=== PATIENT | male | born 1940 | race Caucasian/White ===

== ENCOUNTER 2022-07-29 08:49 | Day surgery (SDC) | payer MEDICARE, BC ==
[~2022-07-29 08:49] MED LIST: ALPRAZolam 0.25 MG TAB PO PRN; ALPRAZolam 0.5 MG TAB PO PRN; ASPIRIN 325 MG TAB PO STA; ATORVASTATIN 80 MG TAB PO STA; HEPARIN SODIUM,PORCINE 10,000 UNIT in SODIUM CHLORIDE 0.9% 1,000 ML IRRIGATION PRN; HEPARIN SODIUM,PORCINE 2,500 UNIT in SODIUM CHLORIDE 0.9% 250 ML IRRIGATION PRN; NITROGLYCERIN SL TABS 0.4 MG TAB SUBLINGUAL PRN
[2022-07-29] MEDS ORDERED: SODIUM CHLORIDE 0.9% 1,000 ML IV ONE (09:06)
[2022-07-29] MEDS ORDERED: BENZOCAINE SPRAY 1 CAN MUCOUS MEM ONE (10:08)
[2022-07-29] MEDS ORDERED: fentaNYL (PF) 50 MCG/1 ML VIAL IV ONE (10:08)
[2022-07-29] MEDS ORDERED: MIDAZOLAM 2 MG/2 ML VIAL IV ONE ×2 (10:08→11:39)
[2022-07-29] MEDS ORDERED: IV FLUID CONTINUATION 1,000 ML IV ONE (10:30)
[2022-07-29] MEDS ORDERED: LIDOCAINE 1% INJ 10MG/ML (30 ML VIAL-PF) SQ ONE (10:37)
[2022-07-29] MEDS ORDERED: VERAPAMIL SYRINGE (5 MG/10 ML) INTRAARTER ONE (10:40)
[2022-07-29] MEDS: HEPARIN SODIUM 1,000 UN/ML (10ML VL) IV ONE ×2 (10:43→11:14)
--- NOTE | 2022-07-29 10:54 | PCN ---
PROCEDURE NOTE STUDY PERFORMED: Transesophageal echo. INDICATION: Aortic stenosis. PROCEDURE NOTE: After obtaining informed consent, transesophageal echocardiogram was performed in left lateral position using an Omniplane probe. Local and IV sedation were obtained using Xylocaine spray, 2 mg of Versed, and 25 mcg of fentanyl. The patient tolerated the procedure well without any obvious immediate complications. The patient had a total sedation time of 10 minutes. FINDINGS: 1. Aortic valve is a 3-leaflet valve, appears heavily calcified and shows severe restriction in leaflet mobility. By planimetry, the valve area is 0.6 squared cm. There is trace aortic regurgitation noted. Mitral valve shows mitral annular calcification with mild central mitral regurgitation. There is mild tricuspid regurgitation. 2. Interatrial septum, there is no evidence of [id number]-bs-[id number] shunt by color-flow Doppler or meams-jq-xfhl shunt by agitated saline contrast study. 3. Left atrium appears mildly enlarged. Right atrium and right ventricle seen within normal limits. 4. Left ventricle has normal size and systolic function. 5. Ascending aorta is free of aneurysm, dilatation, or dissection. CONCLUSION: Severe aortic stenosis involving a 3-leaflet aortic valve and by planimetry, the valve area is 0.6 squared cm. LV function is normal. PLAN: The patient will undergo cardiac catheterization and will be referred for the TAVR. MMODL / IJN: [id number] /
[2022-07-29] MEDS ORDERED: CLOPIDOGREL 75 MG TAB PO ONE (11:14)
[2022-07-29] MEDS ORDERED: IOPAMIDOL-370 100ML BTL INJ ONE ×2 (11:27→12:02)
[2022-07-29] MEDS ORDERED: ATROPINE SULFATE 0.1 MG/ML 10ML SYRINGE IV PRN (11:56)
[2022-07-29] MEDS ORDERED: ZOLPIDEM 5 MG TAB PO PRN (11:56)
[2022-07-29] MEDS ORDERED: NITROGLYCERIN SL TABS 0.4 MG TAB SUBLINGUAL PRN (11:56)
[2022-07-29] MEDS ORDERED: MAG HYDROX/AL HYDROX/SIMETH 30 ML CUP PO PRN (11:56)
[2022-07-29] MEDS ORDERED: RX INFO: IV CONTRAST WAS GIVEN 1 EACH MISC MISCELLANE PRN (11:56)
[2022-07-29] MEDS ORDERED: SODIUM CHLORIDE 0.9% 1,000 ML in EMPTY BAG 1 BAG IV SCH (12:00)
--- NOTE | 2022-07-29 12:01 | P.CARDCATH ---
Date of Procedure: 07/29/22 Description of Procedure: PERCUTANEOUS TRANSLUMINAL CORONARY ANGIOPLASTY CLINICAL INFORMATION: The patient is an 81-year-old male with a history of hypertension, severe aortic stenosis, followed by Dr. Gates and because of the progression of aortic stenosis he underwent cardiac catheterization in preparati on for TAVR and was found to have critical stenosis involving the proximal LAD. Recommendations were made regarding angioplasty and stenting. The procedure as well as the risks and the complications were discussed with the patient who was in full understanding and agreement. PROCEDURE: A 6 Croatian EBU 3.75 guiding catheter was introduced into the system. After cannulating the left main, a 0.014 BMW J was advanced across the lesion and positioned distally. Following that a 2.5 x 12 mm NC Treck balloon was advanced and inflated at 8 atmosphere. Following that a 2.75 x 18 mm Xience. stent was deployed. It was dilated at 16. Following that a [employer] IVUS catheter was advanced and imaging were obtained, after removing the catheter 3.0 x 15 mm NC Treck balloon was advanced and one inflation at 12 candelario was done. After the last inflation, after appropriate wait, the balloon and the guidewire were withdrawn back into the guiding catheter. Images were obtained and repeated. Those images reveal stable successful stenting. At that point, the guiding catheter, the balloon, and guidewire were removed. The sheath was removed. Hemostasis was obtained with deployment of a TR band. There were no immediate complications. The patient was returned to the room in stable condition. Of note, the patient received additional 500 units of heparin as well as Plavix. His ACT was followed. There was no immediate complications. The patient had EKG changes and chest discomfort that resolved at the end of the procedure RESULTS: Successful stenting of the proximal calcified LAD with reduction of stenosis from 80 % to 0 %. RECOMMENDATIONS: The patient will continue on aspirin and Plavix without any interruption for 6 months in addition to aggressive coronary risks modifications. He'll be evaluated at a later time for aortic valve replacement. The findings and recommendations were discussed with the patient and the family, they are in full understanding and agreement. Duration of sedation: 30 minutes
--- NOTE | 2022-07-29 12:45 | LTR ---
Dear Mauricio: I performed transesophageal echo and cardiac catheterization on Palmer Paul. A detailed report is enclosed for your records. In brief, he had severe aortic stenosis with a valve area of 0.6 squared cm and will need and would benefit from aortic valve replacement. He also has significant focal obstructive disease involving proximal LAD, which hopefully we can fix with stenting. Thank you for giving me the privilege to participate in the care of this pleasant gentleman. MMCORINA / YEFRI: [id number] /
--- NOTE | 2022-07-29 12:45 | CC ---
CARDIAC CATHETERIZATION REPORT INDICATION: Aortic stenosis. PROCEDURE NOTE: After obtaining informed consent, left heart catheterization, coronary angiogram and aortogram were performed via the right radial artery using size 3-1/2 right and left Ester catheters and a pigtail catheter. The patient tolerated the procedure well without any obvious immediate complications. He received moderate conscious sedation. Total sedation time was 20 minutes. The right radial artery access was obtained using modified Seldinger technique, and a 6- Nepalese sheath was introduced. Catheters and wires were floated into the ascending aorta under fluoroscopic guidance. 5 mg of verapamil and 3500 units of heparin were given per protocol. FINDINGS: 1. Hemodynamics: Central aortic pressure is 130/70 mm. 2. Left ventriculogram: Left ventriculogram is not performed. 3. Aortogram: Aortogram was performed in left lateral position and shows a calcified aorta without any evidence of any rhythm or dissection. 4. Angiographic data: a.Right coronary artery: Right coronary artery is a large dominant vessel that shows a moderate 40% to 50% stenosis in the distal portion. b.Left main coronary artery is a normal-sized vessel and is free of stenosis. It divides into circumflex coronary artery, which is a large codominant system and LAD. LAD has a focal area of stenosis in the proximal portion. It seems to be 80% to 90% stenosis. CONCLUSIONS: Focal 80% to 90% stenosis involving proximal LAD. PLAN: I am going to review angiographic data with on-call information technology administrator to see if we should revascularize the LAD before sending the patient to TAVR. MMCORINA / YEFRI: [id number] /
[2022-07-29 15:31] VITALS: BMI 22.2
[2022-07-29] MEDS: DOXAZOSIN 4 MG TAB PO SCH (19:57)
[2022-07-29] MEDS: METOPROLOL TARTRATE 50 MG TAB PO SCH (19:57)
[2022-07-29] MEDS ORDERED: ATORVASTATIN 40 MG TAB PO SCH (21:00)
[2022-07-30 06:10] LABS: African American GFR (CKD) >90 (>60 ml/min/1.73 sqM); Anion Gap 7 mmol/L; Blood Urea Nitrogen 12 mg/dL (9-20); Calcium 8.2 mg/dL (8.4-10.2); Carbon Dioxide 26 mmol/L (22-30); Chloride 104 mmol/L (98-107); Glucose 96 mg/dL (74-99); Non-African American GFR(CKD) 82 (>60 ml/min/1.73 sqM); Potassium 4.1 mmol/L (3.5-5.1); Sodium 137 mmol/L (137-145)
[2022-07-30 08:02] VITALS: RESP 16
[2022-07-30 08:42] VITALS: TEMP 98
[2022-07-30] MEDS ORDERED: ASPIRIN 81 MG PO SCH (09:00)
[2022-07-30] MEDS ORDERED: CLOPIDOGREL 75 MG TAB PO SCH (09:00)
[2022-07-30 09:12] VITALS: BP 142/62; PULSE 68
[2022-07-30] MEDS: METOPROLOL TARTRATE 50 MG TAB PO SCH (09:16)
[2022-07-30] MEDS: DOXAZOSIN 4 MG TAB PO SCH (09:16)
== END 2022-07-30 10:06 | disposition home or self-care (01) ==
LOC: CATHCVL 08:49 → 6NMEDSUR 11:42 → CATHCVL 07-30 10:06
PROVIDERS: ATTEND Internal Medicine Cardiovascular Disease
DX: I35.0 Nonrheumatic aortic (valve) stenosis (principal); I10 Essential (primary) hypertension; F17.200 Nicotine dependence, unspecified, uncomplicated; I25.10 Atherosclerotic heart disease of native coronary artery without angina pectoris
CPT/HCPCS: 93312; 93320; 93325; 93454; 80048; C9600; C1769 ×2; C1887; C1894; C1725; C1753; C1874; J2250; J2001; J1644; Q9967; J3010

== ENCOUNTER → 2022-08-11 | Outpatient (CLI) | payer MEDICARE, BC ==
[2022-08-11 10:25] LABS: Appearance,Urine Clear (Clear); Bilirubin,Urine Negative (Negative); Blood,Urine Negative (Negative); Color,Urine Yellow; Glucose,Urine (UA) Negative (Negative); Ketones,Urine Negative (Negative); Leukocyte Esterase,Urine Negative (Negative); Nitrite,Urine Negative (Negative); PH, Urine 5.5 (5.0-8.0); Protein,Urine Negative (Negative); Specific Gravity,Urine 1.021 (1.001-1.035); Urobilinogen,Urine <2.0 mg/dL (<2.0)
[2022-08-11 11:00] LABS: ALT 25 U/L (4-49); AST 32 U/L (17-59); African American GFR (CKD) >90 (>60 ml/min/1.73 sqM); Albumin 4.3 g/dL (3.5-5.0); Albumin/Globulin Ratio 1.8; Alkaline Phosphatase 77 U/L (38-126); Anion Gap 7 mmol/L; Blood Urea Nitrogen 17 mg/dL (9-20); Calcium 9.1 mg/dL (8.4-10.2); Carbon Dioxide 29 mmol/L (22-30); Chloride 103 mmol/L (98-107); Globulin 2.4 g/dL; Glucose 108 mg/dL (74-99); Non-African American GFR(CKD) 81 (>60 ml/min/1.73 sqM); Potassium 4.5 mmol/L (3.5-5.1); Sodium 139 mmol/L (137-145); Total Bilirubin 0.4 mg/dL (0.2-1.3); Total Protein 6.7 g/dL (6.3-8.2)
--- NOTE | 2022-08-11 12:41 | CT ---
EXAMINATION TYPE: CT TAVR Planning DATE OF EXAM: 08/11/2022 HISTORY: TAVR. Aortic valve insufficiency. CT DLP: 1666.5 mGycm Automated Exposure Control for Dose Reduction was Utilized. CONTRAST: CT scan of the chest, abdomen and pelvis is performed with IV Contrast, patient injected with 125 mL of Isovue 370. COMPARISON: None. TECHNIQUE: Helical imaging obtained through the chest, abdomen and pelvis during arterial phase chepe todd administration of radiographic contrast intravenously. FINDINGS: See report from [employer] regarding preprocedural planning CHEST: Lower Neck and Thyroid: No significant findings Lungs: Mild biapical and scattered linear scarring Central Airway: No significant findings Pleura: No significant findings Pulmonary Arteries: No significant findings Heart and Pericardium: Mild cardiomegaly. Moderate calcification of the level of the mitral valve. Se maddie calcifications at level of the aortic valve. Coronary artery calcifications are present which ar e noted marker for underlying coronary artery disease. Lymph Nodes: No significant findings Mediastinum & Esophagus: No significant findings ABDOMEN/PELVIS: Please note arterial phase of the imaging limits detailed evaluation of the solid abdominal organs. Liver: No significant findings Spleen: No significant findings Kidneys: No significant findings Adrenal Glands: No significant findings Pancreas: No significant findings Gallbladder: No significant findings Bowel and Mesentery: Diverticula scattered throughout the colon most prominent at the sigmoid colon l evel. Lymph Nodes: No significant findings Urinary Bladder: No significant findings Pelvic Organs: No significant findings Other: Facet arthropathy lower lumbar spine. 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 Significant plaque at the SMA martha gin with stenosis around 50% coronal image 29. Moderate joint space narrowing and spurring right hip joint. Some bridging osteophytes throughout the thoracic spine. 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 Other findings as noted above.
--- NOTE | 2022-08-11 13:09 | US ---
EXAMINATION TYPE: US carotid duplex BILAT DATE OF EXAM: 08/11/2022 COMPARISON: NONE CLINICAL HISTORY: R55 SYNCOPE. Syncope TECHNIQUE: Carotid duplex ultrasound examination. Indirect Doppler criteria was utilized. FINDINGS: EXAM MEASUREMENTS: RIGHT: Peak Systolic Velocity (PSV) cm/sec ----- Right CCA: 82.9 ----- Right ICA: 190 ----- Right ECA: 158 ICA/CCA ratio: 2.3 RIGHT: End Diastole cm/sec ----- Right CCA: 15.6 ----- Right ICA: 50.8 ----- Right ECA: 6.0 LEFT: Peak Systolic Velocity (PSV) cm/sec ----- Left CCA: 82.1 ----- Left ICA: 533 ----- Left ECA: 238 ICA/CCA ratio: 6.5 LEFT: End Diastole cm/sec ----- Left CCA: 18.7 ----- Left ICA: 123 ----- Left ECA: 0.0 VERTEBRALS (direction of flow): Right Vertebral: Antegrade Left Vertebral: Antegrade Rhythm: Arrhythmia CRACKLING PRESS OPERATOR NOTES: Significant stenosis bilaterally, more on left side with elevated velocities and abnormal ratios IMPRESSION: 1. Greater than 70% stenosis to near occlusion of the left internal carotid artery at its origin sec ondary to calcified and noncalcified plaque. 2. 50 to 69% stenosis of the right internal carotid artery at its origin secondary to calcified and noncalcified plaque. Criteria for Assigning % of Stenosis / Diameter reduction (Estimation based on the indirect measurements of the internal carotid artery velocities (ICA PSV). 1. Normal (no stenosis)=ICA PSV < 125 cm/s: ratio < 2.0: ICA EDV<40 cm/s. 2. Less than 50% stenosis=ICA PSV < 125 cm/s: ratio < 2.0: ICA EDV<40 cm/s. 3. 50 to 69% stenosis=ICA PSV of 125 to 230 cm/s: ration 2.0 ? 4.0: ICA EDV 40-100 cm/s. 4. Greater than 70% stenosis to near occlusion= ICA PSV > 230 cm/s: ratio > 4.0: ICA EDV > 100 cm/s. 5. Near occlusion= ICA PSV velocities may be low or undetectable: variable ratio and ICA EDV. 6. Total occlusion=unable to detect flow.
[2022-08-11 14:27] LABS: Basophils # (A) 0.07 X 10*3/uL (0.00-0.10); Basophils % (A) 0.8 %; Eosinophils # (A) 0.17 X 10*3/uL (0.04-0.35); HCT 37.5 % (39.6-50.0); HGB 12.4 g/dL (13.0-17.0); Immature Grans, Automated 0.6 %; Lymphocytes # (A) 1.95 X 10*3/uL (0.90-5.00); Lymphocytes % (A) 23.4 %; MCH 30.9 pg (27.0-32.0); MCHC 33.1 g/dL (32.0-37.0); MCV 93.5 fL (80.0-97.0); Mean Platelet Volume 11.2 fL (9.5-12.2); Monocytes % (A) 8.4 %; NRBC Per 100 WBC 0 /100 WBCS (0.0-0.0); Neutrophils # (A) 5.38 X 10*3/uL (1.80-7.70); Neutrophils % (A) 64.8 %; Platelet Count 177 X 10*3/uL (140-440); RBC 4.01 X 10*6/uL (4.40-5.60); RDW 13.3 % (11.5-14.5); WBC 8.32 X 10*3/uL (4.50-10.00)
[2022-08-11 14:57] LABS: ALT 22 U/L (10-49); AST 24 U/L (14-35); Albumin 4.4 g/dL (3.8-4.9); Albumin/Globulin Ratio 1.91 (1.60-3.17); Alkaline Phosphatase 70 U/L (41-126); Bilirubin, Conjugated <0.20 mg/dL (0.20-0.40); Chol/HDL Ratio 2.26 Ratio; Globulin 2.3 g/dL (1.6-3.3); LDL Cholesterol,Calculated 51.8 mg/dL (0.0-131.0); Magnesium 1.7 mg/dL (1.5-2.4); Total Protein 6.7 g/dL (6.2-8.2)
== END | disposition home or self-care (01) ==
LOC: LABWHC1 08:51
PROVIDERS: ATTEND Thoracic Surgery (Cardiothoracic Vascular Surgery)
DX: I35.1 Nonrheumatic aortic (valve) insufficiency (principal); R55 Syncope and collapse
CPT/HCPCS: 94150; 83880; 80061; 80053; 80076; 84443; 83735; 85025; 85730; 81003; 83036; 93880; 71275; 36415 ×2; 74174; Q9967

== ENCOUNTER → 2022-12-29 | Outpatient (CLI) | payer MEDICARE, BC ==
[2022-12-29 13:02] LABS: African American GFR (CKD) >90 (>60 ml/min/1.73 sqM); Blood Urea Nitrogen 12 mg/dL (9-20); Non-African American GFR(CKD) 80 (>60 ml/min/1.73 sqM)
--- NOTE | 2022-12-29 13:57 | CT ---
EXAMINATION TYPE: CT angio neck CT DLP: 405 mGycm, Automated exposure control for dose reduction was used. DATE OF EXAM: 12/29/2022 1:44 PM COMPARISON: . 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 Axial images are supplemented with 3D reconstructions wh ich were post-processed at an independent workstation. NASCET criteria used. FINDINGS: CTA NECK: Right Carotid System: The common carotid artery and external carotid artery are patent. The carotid bifurcation demonstrate s mixed calcified and noncalcified plaque with approximately 60% stenosis. The remaining portions of the internal carotid artery demonstrate normal size without significant narrowing. Left Carotid System: The common carotid artery and external carotid artery are patent. The carotid bifurcation demonstrate s mixed calcified and noncalcified plaque with approximately 90% stenosis. The remaining portions of the internal carotid artery demonstrate normal size without significant narrowing. Vertebral arteries are patent without evidence hemodynamically significant stenosis. Diminutive appea monica of the intracranial portion of the left vertebral artery. The right vertebral artery is dominan t. There is a three-vessel aortic arch. The origins of the great vessels are patent. No evidence of hemo dynamically significant stenosis. Mild centrilobular emphysematous changes. Multilevel degenerative changes of the cervical spine. IMPRESSION: 1. Approximately 90% stenosis at the origin of the left internal carotid artery secondary to calcifie d and noncalcified plaque. 2. Approximately 60% stenosis of the origin of the right internal carotid artery secondary to calcifi ed and noncalcified plaque.
== END | disposition home or self-care (01) ==
LOC: RADCTMAIN 11:51
PROVIDERS: ATTEND Surgery
DX: I65.23 Occlusion and stenosis of bilateral carotid arteries (principal)
CPT/HCPCS: 82565; 84520; 70498; 36415; Q9967

== ENCOUNTER 2023-02-10 13:05 | Inpatient (IN) | payer MEDICARE, BC ==
[2023-02-08 10:11] VITALS: BMI 23.6
[~2023-02-10 13:05] MED LIST changes: -ASPIRIN 325 MG TAB PO STA; -ATORVASTATIN 80 MG TAB PO STA; -HEPARIN SODIUM,PORCINE 10,000 UNIT in SODIUM CHLORIDE 0.9% 1,000 ML IRRIGATION PRN; -HEPARIN SODIUM,PORCINE 2,500 UNIT in SODIUM CHLORIDE 0.9% 250 ML IRRIGATION PRN; +RX INFO: IV CONTRAST WAS GIVEN 1 EACH MISC MISCELLANE PRN; +SODIUM CHLORIDE 0.9% 1,000 ML in EMPTY BAG 1 BAG IV ONE
[2023-02-10] MEDS ORDERED: LIDOCAINE 1% INJ 10MG/ML (20 ML MDV) ONE (13:37)
[2023-02-10] MEDS ORDERED: SODIUM CHLORIDE 0.9% 1,000 ML IV ONE (13:39)
[2023-02-10 13:47] VITALS: RESP 16
[2023-02-10] MEDS ORDERED: LIDOCAINE 1% INJ 10MG/ML (30 ML VIAL-PF) SQ ONE (14:01)
[2023-02-10] MEDS ORDERED: HEPARIN SODIUM 1,000 UN/ML (10ML VL) ONE (14:09)
[2023-02-10] MEDS: HEPARIN SODIUM 1,000 UN/ML (10ML VL) IV ONE ×2 (14:11→14:15)
[2023-02-10] MEDS ORDERED: CLOPIDOGREL 75 MG TAB PO ONE (14:30)
[2023-02-10] MEDS ORDERED: CLOPIDOGREL 75 MG TAB ONE (14:38)
[2023-02-10] MEDS ORDERED: MAG HYDROX/AL HYDROX/SIMETH 30 ML CUP PO PRN (14:43)
[2023-02-10] MEDS ORDERED: ATROPINE SULFATE 0.1 MG/ML 10ML SYRINGE IV PRN (14:43)
[2023-02-10] MEDS ORDERED: IOPAMIDOL-370 100ML BTL INJ ONE (14:48)
--- NOTE | 2023-02-10 15:21 | IR ---
EXAMINATION TYPE: IR stent intravas non coronary DATE OF EXAM: 02/10/2023 COMPARISON: NONE HISTORY: Fluoroscopy time. Fluoroscopy was provided to the referring clinician.
--- NOTE | 2023-02-10 19:31 | P.PCN ---
Date of Procedure: 02/10/23 Operative Findings: Carotid stenting report Performing physician Dick Sher M.D. Procedure performed 1. Successful stenting of the left internal carotid artery using 7-9 x 30 XACT carotid stent with an excellent angiographic results 2. Adjunctive use off distal protection device using filter 3. Selective left common and left internal carotid angiogram and intracranial angiogram 4. An aortic arch angiogram, right common femoral artery angiogram, and ultrasound guided access of the right common femoral artery Indication Critical left internal carotid artery disease in this 82-year-old gentleman who is going to undergo transcatheter aortic valve replacement. Approach Right common femoral artery Complication None Level of sedation The procedure was performed was no sedation. The total duration of the case was about 40 minutes Procedure description After obtaining an informed consent the patient was brought to the cardiac gold leaf laborer. The right common femoral artery was cannulated using puncture technique, the micropuncture wire passed easily then I placed a 6-South Korean 90 cm shuttle sheath at the right common femoral artery. Anticoagulation was initiated using heparin with continuous ACT monitoring. Subsequently I did an aortic arch angiogram using 5-[place] pigtail catheter and using a power injection was distal subselection and that revealed that the aortic arch is type II arch. I was able to visualize the take off of the left common carotid artery. After that I was able to select the left common carotid artery using JB2 catheter. I did wire the left common and left internal carotid artery using 035 wire and subsequently the JB2 catheter was advanced over the wire and the sheath was advanced over the wire and the catheter to the mid left common carotid artery. Subsequently left common and left internal carotid artery angiogram was performed and showed critical disease involving the left internal carotid artery by the ostium/proximal portion. After that I wire the left internal carotid artery using a filter wire and the filter was deployed under fluoroscopy guidance. Predilatation was performed using 4 mm balloon subsequently we deployed the above the stent under fluoroscopy guidance. The postdilatation was performed using 5 mm balloon. Final angiogram showed excellent angiographic results and the procedure was completed was no complication. After that entertain angiogram was also performed. Then I did exchange my long sheath into short sheath using 035 wire. The procedure was completed there was no complication. By the end of his selective right common femoral artery angiogram Postprocedure management ICU admission Monitor the pressure and heart rate Follow-up with the patient
[2023-02-10] MEDS: DOXAZOSIN 4 MG TAB PO SCH (20:07)
[2023-02-10] MEDS: METOPROLOL TARTRATE 50 MG TAB PO SCH (20:07)
[2023-02-10] MEDS ORDERED: ATORVASTATIN 40 MG TAB PO SCH (21:00)
[2023-02-11 04:59] VITALS: TEMP 97.8
[2023-02-11] MEDS ORDERED: SODIUM CHLORIDE 0.9% 1,000 ML in EMPTY BAG 1 BAG IV ONE (06:00)
--- NOTE | 2023-02-11 07:21 | P.DS ---
Providers Date of admission: 02/10/23 13:05 Attending physician: Dick Sher Primary care physician: [facility] Course: This is an 82-year-old gentleman who underwent yesterday successful stenting of the left internal carotid artery with a good angiographic results and was no complication The patient was seen this morning. He is asymptomatic and is hemodynamically stable. The patient is going to be discharged on dual antiplatelet therapy as well as a statin and he will follow-up with Dr. Gates in the office in a week Plan - Discharge Summary Discharge Rx Participant: Yes New Discharge Prescriptions: Continue Metoprolol Tartrate [Lopressor] 50 mg PO BID Clopidogrel [Plavix] 75 mg PO DAILY #90 tab Vitamin B Complex 1 each PO DAILY Doxazosin [Cardura] 4 mg PO BID Aspirin 81 mg PO DAILY #90 Ascorbic Acid [Vitamin C] 500 mg PO DAILY [place]-3/Dha/Epa/Fish Oil [Fish Oil 1,000 mg Softgel] 2,000 mg PO DAILY Discharge Medication List Doxazosin [Cardura] 4 mg PO BID 07/27/22 [History] Metoprolol Tartrate [Lopressor] 50 mg PO BID 07/27/22 [History] Aspirin 81 mg PO DAILY #90 07/30/22 [Rx] Clopidogrel [Plavix] 75 mg PO DAILY #90 tab 07/30/22 [Rx] Ascorbic Acid [Vitamin C] 500 mg PO DAILY 02/08/23 [History] [place]-3/Dha/Epa/Fish Oil [Fish Oil 1,000 mg Softgel] 2,000 mg PO DAILY 02/08/23 [History] Vitamin B Complex 1 each PO DAILY 02/08/23 [History] Follow up Appointment(s)/Referral(s): Guillermo Gates MD [STAFF PHYSICIAN] - 1 Week
[2023-02-11] MEDS ORDERED: CLOPIDOGREL 75 MG TAB PO SCH (09:00)
[2023-02-11] MEDS ORDERED: NON FORMULARY DRUG (Omega-3/Dha/Epa/Fish Oil [Fish Oil 1,000 Mg Softgel] 1 EACH Capsule) PO SCH (09:00)
[2023-02-11] MEDS: DOXAZOSIN 4 MG TAB PO SCH (09:00)
[2023-02-11] MEDS ORDERED: NON FORMULARY DRUG (Vitamin B Complex [Vitamin B Complex] 1 EACH Capsule) PO SCH (09:00)
[2023-02-11] MEDS ORDERED: ASCORBIC ACID 500 MG TAB PO SCH (09:00)
[2023-02-11] MEDS ORDERED: ASPIRIN 81 MG PO SCH (09:00)
[2023-02-11] MEDS: METOPROLOL TARTRATE 50 MG TAB PO SCH (09:00)
[2023-02-11 09:02] VITALS: BP 126/55; PULSE 74
[2023-02-11 09:28] LABS: Basophils # (A) 0.1 k/uL (0-0.2); Basophils % (A) 1 %; Eosinophils # (A) 0.1 k/uL (0-0.7); Eosinophils % (A) 1 %; HCT 39.5 % (39.0-53.0); HGB 12.9 gm/dL (13.0-17.5); Lymphocytes # (A) 1.4 k/uL (1.0-4.8); Lymphocytes % (A) 17 %; MCH 30.8 pg (25.0-35.0); MCHC 32.6 g/dL (31.0-37.0); MCV 94.4 fL (80.0-100.0); Mean Platelet Volume 7.7; Monocytes # (A) 0.4 k/uL (0-1.0); Monocytes % (A) 5 %; Neutrophils % (A) 75 %; Platelet Count 176 k/uL (150-450); RBC 4.18 m/uL (4.30-5.90); RDW 13.5 % (11.5-15.5)
[2023-02-11 09:59] LABS: African American GFR (CKD) >90 (>60 ml/min/1.73 sqM); Anion Gap 12 mmol/L; Blood Urea Nitrogen 15 mg/dL (9-20); Calcium 8.6 mg/dL (8.4-10.2); Carbon Dioxide 25 mmol/L (22-30); Chloride 100 mmol/L (98-107); Glucose 132 mg/dL (74-99); Non-African American GFR(CKD) 82 (>60 ml/min/1.73 sqM); Potassium 3.9 mmol/L (3.5-5.1); Sodium 137 mmol/L (137-145)
== END 2023-02-11 09:28 | disposition home or self-care (01) | DRG 36 ==
LOC: 2ORMAIN 13:05 → 3SCARD 14:55
PROVIDERS: ADMIT Internal Medicine Interventional Cardiology; ATTEND Internal Medicine Interventional Cardiology
PROC: B3171ZZ Fluoroscopy of Left Internal Carotid Artery using Low Osmolar Contrast (ICD-10-PCS; principal; 2023-02-10 14:30)
PROC: B410ZZZ Fluoroscopy of Abdominal Aorta (ICD-10-PCS; principal; 2023-02-10 14:30)
PROC: 037L3DZ Dilation of Left Internal Carotid Artery with Intraluminal Device, Percutaneous Approach (ICD-10-PCS; principal; 2023-02-10 14:30)
PROC: B31R1ZZ Fluoroscopy of Intracranial Arteries using Low Osmolar Contrast (ICD-10-PCS; principal; 2023-02-10 14:30)
PROC: B41F1ZZ Fluoroscopy of Right Lower Extremity Arteries using Low Osmolar Contrast (ICD-10-PCS; principal; 2023-02-10 14:30)
DX: I65.22 Occlusion and stenosis of left carotid artery (principal); I10 Essential (primary) hypertension; F17.210 Nicotine dependence, cigarettes, uncomplicated; Z79.82 Long term (current) use of aspirin; Z79.899 Other long term (current) drug therapy; Z91.030 Bee allergy status
CPT/HCPCS: 37215; 80048; 85025

== ENCOUNTER → 2023-03-06 | Outpatient (CLI) | payer MEDICARE, BC ==
[2023-03-06 11:09] LABS: Partial Thromboplastin Time 24.7 sec (22.0-30.0); Prothrombin Time 10.1 sec (9.0-12.0)
[2023-03-07 08:10] LABS: HCT 38.8 % (39.6-50.0); HGB 12.7 d/dL (12.0-15.0); MCHC 32.7 d/dL (32.0-37.0); MCV 94.6 FL (80.0-97.0); Mean Platelet Volume 11.1 FL (9.5-12.2); NRBC Per 100 WBC 0 X 10*3/uL (0.00-0.01); Platelet Count 149 X 10*3/uL (140-440); WBC 7.56 X 10*3/uL (4.50-10.00)
[2023-03-07 08:18] LABS: ALT 21 U/L (10-49); AST 22 U/L (14-35); Albumin 4.2 d/dL (3.8-4.9); Alkaline Phosphatase 56 U/L (41-126); BUN/Creat Ratio 14.12 Ratio (12.00-20.00); Blood Urea Nitrogen 11.3 mg/dL (9.0-27.0); Calcium 9.4 mg/dL (8.7-10.3); Carbon Dioxide 28.8 mmol/L (21.6-31.8); Chloride 103 mmol/L (96-109); Glucose 101 mg/dL (70-110); Potassium 4.6 mmol/L (3.5-5.5); Sodium 142 mmol/L (135-145); Total Bilirubin 0.3 mg/dL (0.3-1.2); Total Protein 6.2 d/dL (6.2-8.2)
== END | disposition home or self-care (01) ==
LOC: LABWHC1 10:06
PROVIDERS: ATTEND Thoracic Surgery (Cardiothoracic Vascular Surgery)
DX: I35.0 Nonrheumatic aortic (valve) stenosis (principal)
CPT/HCPCS: 36415; 80053; 85027; 85610; 85730

== ENCOUNTER 2023-03-10 05:52 | Inpatient (IN) | payer MEDICARE, BC ==
[2023-03-03 15:35] VITALS: BMI 23.7
[2023-03-10] MEDS ORDERED: LACTATED RINGERS 1,000 ML IV SCH ×2 (06:00→08:58)
[2023-03-10] MEDS ORDERED: SODIUM CHLORIDE 0.9% 500 ML 500 ML INTRAARTER PRN (06:00)
[2023-03-10] MEDS ORDERED: METOPROLOL TARTRATE 25 MG TAB PO ONE (06:00)
[2023-03-10] MEDS ORDERED: ASPIRIN 325 MG TAB PO ONE (06:00)
[2023-03-10] MEDS ORDERED: PROTAMINE SULFATE 250 MG in EMPTY BAG 1 BAG IV PRN (06:00)
[2023-03-10] MEDS ORDERED: CLOPIDOGREL 75 MG TAB PO ONE (06:00)
[2023-03-10] MEDS ORDERED: ATORVASTATIN 10 MG TAB PO ONE (06:00)
[2023-03-10] MEDS ORDERED: INSULIN REGULAR 100 UNIT in SODIUM CHLORIDE 0.9% 100 ML IV PRN (06:00)
[2023-03-10] MEDS ORDERED: TRANEXAMIC ACID 2,000 MG in SODIUM CHLORIDE 0.9% 80 ML IV PRN (06:00)
[2023-03-10] MEDS ORDERED: CLEVIDIPINE BUTYRATE 25 MG in EMPTY BAG 1 BAG IV PRN (06:00)
[2023-03-10] MEDS ORDERED: ELECTROLYTE-A SOLUTION 1,000 ML with POTASSIUM CHLORIDE 100 MEQ, MAGNESIUM SULFATE 16 M... IV PRN ×5 (06:00)
[2023-03-10] MEDS ORDERED: NITROGLYCERIN-D5W PMX 25 MG/250 ML BTL IV PRN (06:00)
[2023-03-10] MEDS ORDERED: SODIUM CHLORIDE 0.9% 1,000 ML IV ONE (06:16)
[2023-03-10] MEDS ORDERED: PROPOFOL 10 MG/ML 20 ML VIAL IV ONE (07:29)
[2023-03-10] MEDS ORDERED: PROTAMINE SULFATE 10 MG/ML 5 ML VIAL IV ONE (07:29)
[2023-03-10] MEDS ORDERED: HEPARIN SODIUM,PORCINE 5,000 UNIT/ML 1 ML VIAL ONE (07:29)
[2023-03-10] MEDS ORDERED: SUCCINYLCHOLINE CHLORIDE 200 MG/10 ML VIAL IV ONE (07:29)
[2023-03-10] MEDS ORDERED: ePHEDrine 50 MG/ML 1 ML VIAL ONE (07:29)
[2023-03-10] MEDS ORDERED: LIDOCAINE 4% LTA KIT (4 ML) TOPICAL ONE (07:29)
[2023-03-10] MEDS ORDERED: NEOSTIGMINE 1 MG/ML 10 ML VIAL ONE (07:29)
[2023-03-10] MEDS ORDERED: fentaNYL (PF) 50 MCG/ML 2 ML AMP ONE (07:29)
[2023-03-10] MEDS ORDERED: EPINEPHrine 10 ML SYRINGE (0.1 MG/ML) ONE (07:29)
[2023-03-10] MEDS ORDERED: GLYCOPYRROLATE 0.2 MG/ML 2 ML VIAL ONE (07:29)
[2023-03-10] MEDS ORDERED: ROCURONIUM 10 MG/ML (5 ML VIAL) IV ONE (07:29)
[2023-03-10] MEDS ORDERED: MIDAZOLAM 2 MG/2 ML VIAL ONE (07:29)
[2023-03-10] MEDS ORDERED: LIDOCAINE 1% INJ 10MG/ML (20 ML MDV) ONE (07:45)
[2023-03-10] MEDS ORDERED: IOPAMIDOL-370 100ML BTL INJ ONE (08:40)
[2023-03-10] MEDS ORDERED: SENNOSIDES-DOCUSATE SODIUM 1 EACH TAB PO PRN (08:58)
[2023-03-10] MEDS ORDERED: ONDANSETRON 4 MG/2 ML VIAL IVP PRN (08:58)
[2023-03-10] MEDS ORDERED: Magnesium Replacement Protocol 1 EACH MISC MISCELLANE PRN (08:58)
[2023-03-10] MEDS ORDERED: Potassium Replacement Protocol 1 EACH MISC MISCELLANE PRN (08:58)
[2023-03-10] MEDS ORDERED: ACETAMINOPHEN TAB 500 MG TAB PO PRN (08:58)
[2023-03-10] MEDS ORDERED: IPRATROPIUM-ALBUTEROL 3 ML NEB INHALATION PRN (08:58)
[2023-03-10 09:19] LABS: Glucose,Whole Blood 111 mg/dL (70-110)
--- NOTE | 2023-03-10 09:41 | P.OP ---
Date of Procedure: 03/10/23 Preoperative Diagnosis: Tricuspid calcific aortic stenosis Postoperative Diagnosis: Same Procedure(s) Performed: Percutaneous transfemoral aortic valve replacement with 34 mm FX Medtronic core valve Implants: 34 mm FX Medtronic core valve Anesthesia: GETA Surgeon: Eren Woodall (Cardiovascular surgeon) Mannequin Decorator #1: Dick Sher (cutting and splicing supervisor) Mannequin Decorator #2: Jorge Cuellar (Nurse practitioner) Estimated Blood Loss (ml): 15 IV fluids (ml): 500 Pathology: none sent Condition: stable Disposition: ICU Indications for Procedure: 82-year-old male with symptomatic tricuspid calcific aortic stenosis presents for elective aortic valve replacement. He was seen in the heart valve clinic and under shared decision-making heart team approach opted for transcatheter approach for this patient Operative Findings: See below Description of Procedure: Patient was brought to the cardiac catheterization laboratory placed supine on the table. General anesthesia was induced. Anterior torso and bilateral groins were sterilely prepped and draped. Bilateral femoral arterial access was obtained by Dr. Daniels under ultrasound guidance. On the left a 6-Swiss Santiago catheter was placed. On the right 7-Swiss sheath was placed and 2 Perclose devices were then placed in the right common femoral artery. An 8-Swiss sheath was then placed. Right subclavian venous access was obtained and a screw-in ventricular lead was manipulated into the apex of the right ventricle under fluoroscopic guidance. Thresholds were below 1 pole. Lead was secured to the skin with 2-0 silk suture ligatures. Patient was systemically heparinized. Pigtail was threaded on the left groin up into the noncoronary sinus of Valsalva. Root injection was obtained. The right femoral sheath was exchanged for an 18-Swiss sheath over a stiff wire. Aortic valve was now cross from the right side a straight wire and a pigtail catheter positioned in the apex of the left ventricle. Transvalvular gradients were measured. Stiff wire was placed in the apex of the ventricle and the 18-Swiss sheath was exposed exchanged for a 34 mm FX Metronic core valve delivery system. This was advanced upward through the femoral iliac system into the aorta and upwards across the aortic arch and down into the aortic root under fluoroscopic guidance. Aortic valve was crossed and valve deployed under rapid ventricular pacing. Final appointment level had the non-coronary cusp at 2 and the left side at 3. Valve deployed easily and appeared to be well expanded on both fluoroscopy and echocardiography. Root injection demonstrated no evidence of aortic insufficiency. TONY demonstrated only trivial paravalvular leak. Valve delivery system was removed and replaced with the 14-Swiss sheath. Heparin was reversed with protamine. A 14-Swiss sheath was removed and the 2 close device was deployed with successful hemostasis of the right femoral artery. Completion angiography demonstrated no narrowing, patent femoral system and no evidence of leak. The femoral sheath was removed and stasis obtained by Dr. Sher. Patient was transferred to ICU following extubation in stable hemodynamic condition.
--- NOTE | 2023-03-10 09:48 | P.ANPRN ---
Procedure Note - Anesthesia - Invasive Line Left Arterial Line Time Out Performed: Yes Date of Procedure: 03/10/23 Time of Procedure: 07:10 Location of Patient: CVL Preparation: Sterile Prep, Sterile Dressing Arterial Line Location: Radial Ultrasound Used: Yes Purpose - Visualization and Identification of Vasculature: Yes Needle Guage: 20 Image Stored and Saved: No (No capability on machine) Narrative: Left radial arterial line placed under u/s guidance using Seldinger technique.
[2023-03-10] MEDS: CHOLECALCIFEROL 25 MCG (1000 IU) TABLET PO SCH (09:51)
[2023-03-10] MEDS: ASCORBIC ACID 500 MG TAB PO SCH (09:51)
--- NOTE | 2023-03-10 09:56 | P.ANPRN ---
Procedure Note - Anesthesia - TONY Intraop Pre Bypass TONY Intraop - Anesthesia Indication: Date of Procedure: 03/10/23 Pre-operative Diagnosis: Post-operative Diagnosis: same Surgeon: Eren Woodall Left Ventricle: EF 55% Ejection Fraction: Normal Regional Wall Motion Abnormalities: None Left Ventricle Hypertrophy: No R. Ventricle Function: Normal Anatomy: Trileaflet Aortic Stenosis: Moderate (Peak 47 mmHg, Mean 31 mm) Aortic Regurgitation: None Mitral Stenosis: None Mitral Regurgitation: Mild Tricuspid Stenosis: None Tricuspid Regurgitation: None Pulmonic Stenosis: None Pulmonic Regurgitation: None R. Atrial Dilation: No R. Atrial PFO: No L. Atrial Dilation: No Aortic Dissection: No Aortic Calcification: Moderate Plural Effusion: None - TONY Intraop Post Bypass TONY Intraop Post Bypass Procedure Performed: TAVR Left Ventricle: 55% Ejection Fraction: Normal Regional Wall Motion Abnormalities: None R. Ventricle Function: Normal Aortic Valve: Peak 9.7 mmHg, Mean 5.2 mmHg; Mild perivalvular between Left and Non coronary cusps.
--- NOTE | 2023-03-10 10:20 | P.CNPUL ---
History of Present Illness Consult date: 03/10/23 Requesting physician: Eren Woodall Reason for consult: other (Critical care management) Chief complaint: Aortic stenosis History of present illness: This is an 82-year-old male patient with a known history of hypertension, hyperlipidemia, chronic chewing tobacco, carotid stenosis status post left carotid stenting. He is also found to have severe aortic stenosis and was brought in today electively for a percutaneous transfemoral aortic valve replacement. He tolerated the procedure well and is seen in consultation in the intensive care unit. He is currently laying flat in bed. Awake and alert in no acute distress. Maintaining good O2 saturations in the 90s on room air. Afebrile. Hemodynamically stable. Groin sites are stable. Blood sugar 111. Lactated Ringer's at 50 MLS per hour. Heparin for DVT prophylaxis. Cefazolin 3 doses. Home medications renewed. Chest x-ray shows no acute pulmonary process. Pacemaker wires in position. Review of Systems REVIEW OF SYSTEMS: CONSTITUTIONAL: Denies any recent significant weight loss or weight gain. EYES: Denies change in vision. EARS, NOSE, MOUTH, THROAT: Denies headaches, denies sore throat. CARDIOVASCULAR: Denies chest pain, palpitations or syncopal episodes. RESPIRATORY: Denies shortness of breath, cough, congestion or hemoptysis. GASTROINTESTINAL: Denies change in appetite, denies abdominal pain GENITOURINARY: Denies hematuria, denies infections. MUSKULOSKELETAL: Denies pain, denies swelling. INTEGUMENTARY: Denies rash, denies eczema. NEUROLOGICAL: Denies recent memory loss, no recent seizure activity. PSYCHIATRIC: Denies anxiety, denies depression. HEMATOLOGIC/LYMPHATIC: Denies anemia, denies enlarged lymph nodes. Past Medical History Past Medical History: Chest Pain / Angina, Hypertension Additional Past Medical History / Comment(s): "LEAKY VALVE"-POSSIBLE TAVR PROCEDURE SOON PER THE SPOUSE. HIATAL HERNIA History of Any Multi-Drug Resistant Organisms: None Reported Past Surgical History: Heart Catheterization With Stent Additional Past Surgical History / Comment(s): left carotid stent 02-10-23,teeth extractions Past Anesthesia/Blood Transfusion Reactions: No Reported Reaction Additional Past Anesthesia/Blood Transfusion Reaction / Comment(s): no hx blood transfusion Date of Last Stent Placement:: 07/2022 Additional Past Alcohol Use History / Comment(s): CHEWS TOBACCO - Past Family History Father Family Medical History: Cancer Mother Family Medical History: No Reported History Medications and Allergies Home Medications Medication Instructions Recorded Confirmed Type Doxazosin [Cardura] 4 mg PO BID 07/27/22 03/10/23 History Metoprolol Tartrate [Lopressor] 50 mg PO BID 07/27/22 03/10/23 History Aspirin 81 mg PO DAILY #90 07/30/22 03/10/23 Rx Clopidogrel [Plavix] 75 mg PO DAILY #90 tab 07/30/22 03/10/23 Rx Ascorbic Acid [Vitamin C] 250 mg PO DAILY 02/08/23 03/10/23 History [place]-3/Dha/Epa/Fish Oil [Fish Oil 2,000 mg PO DAILY 02/08/23 03/10/23 History 1,000 mg Softgel] Vitamin B Complex 1 each PO DAILY 02/08/23 03/10/23 History Cholecalciferol [Vitamin D3 (25 50 mcg PO DAILY 03/03/23 03/10/23 History Mcg = 1000 Iu)] Allergies Allergy/AdvReac Type Severity Reaction Status Date / Time bee venom protein (honey bee) Allergy Anaphylaxis Verified 03/03/23 15:04 Physical Exam Vitals: Vital Signs Temp Pulse Pulse Resp BP BP BP 03/10/23 10:00 97.6 F 63 13 03/10/23 09:45 64 15 03/10/23 09:30 97.9 F 67 13 03/10/23 09:28 97.7 F 67 16 123/33 03/10/23 09:20 62 14 03/10/23 09:13 97.9 F 69 14 129/34 03/10/23 08:58 97.5 F L 65 13 121/31 03/10/23 06:21 97.1 F L 60 16 122/58 153/67 Pulse Ox 03/10/23 10:00 94 L 03/10/23 09:45 93 L 03/10/23 09:30 92 L 03/10/23 09:28 03/10/23 09:20 94 L 03/10/23 09:13 03/10/23 08:58 03/10/23 06:21 99 Intake and Output 03/09/23 03/10/23 03/10/23 22:59 06:59 14:59 Intake Total 150 Balance 150 Intake: IV 150 ABP, PAP, CO, CI - Last 8 Hours Arterial Blood Pressure 130/41 Arterial Blood Pressure 126/40 Arterial Blood Pressure 117/34 Arterial Blood Pressure 121/35 GENERAL EXAM: Alert, pleasant 82-year-old male, on room air, comfortable in no apparent distress. HEAD: Normocephalic. EYES: Normal reaction of pupils, equal size. NOSE: Clear with pink turbinates. THROAT: No erythema or exudates. NECK: No masses, no JVD. CHEST: No chest wall deformity. Pacemaker wires in place. LUNGS: Equal air entry with no crackles, wheeze, rhonchi or dullness. CVS: S1 and S2 normal with no audible murmur, regular rhythm. ABDOMEN: No hepatosplenomegaly, normal bowel sounds, no guarding or rigidity. SPINE: No scoliosis or deformity SKIN: No rashes CENTRAL NERVOUS SYSTEM: No focal deficits, tone is normal in all 4 extremities. EXTREMITIES: Groin sites stable. There is no peripheral edema. No clubbing, no cyanosis. Peripheral pulses are intact. Results - Laboratory Findings Abnormal lab findings: Abnormal Labs 03/06/23 03/10/23 10:14 09:18 POC Glucose (mg/dL) 111 H Crossmatch See Detail - Diagnostic Findings Chest x-ray: image reviewed Assessment and Plan Assessment: Severe aortic stenosis status post percutaneous transfemoral aortic valve replacement. Postoperative day #0 History of carotid stenosis status post left carotid stent placement 02/10/2023 History of coronary artery disease with previous stent placement to LAD in July 2022 History of hypertension Hyperlipidemia Daily tobacco use via chew Plan: The patient was seen and evaluated Chest x-ray, labs and medications reviewed Currently stable and on room air We'll monitor closely here in the ICU We will continue to follow and make further recommendations based on his clinical status I have personally seen and examined the patient, performed the documentation and the assessment and plan as written. Number of minutes spent on the visit: 20.
[2023-03-10 10:40] LABS: Basophils % (A) 0 %; Eosinophils # (A) 0.2 k/uL (0-0.7); Eosinophils % (A) 3 %; HCT 33.8 % (39.0-53.0); HGB 11.3 gm/dL (13.0-17.5); Lymphocytes # (A) 1.2 k/uL (1.0-4.8); Lymphocytes % (A) 22 %; MCH 31.3 pg (25.0-35.0); MCHC 33.3 g/dL (31.0-37.0); MCV 93.9 fL (80.0-100.0); Mean Platelet Volume 8.4; Monocytes # (A) 0.4 k/uL (0-1.0); Monocytes % (A) 7 %; Neutrophils # (A) 3.7 k/uL (1.3-7.7); Neutrophils % (A) 67 %; Platelet Count 136 k/uL (150-450); RDW 13.6 % (11.5-15.5); WBC 5.5 k/uL (3.8-10.6)
[2023-03-10 10:54] LABS: INR 1.1 (<1.2); Partial Thromboplastin Time 25.5 sec (22.0-30.0); Prothrombin Time 11.2 sec (9.0-12.0)
[2023-03-10 11:00] LABS: Ionized Calcium 4.7 mg/dL (4.5-5.3)
--- NOTE | 2023-03-10 11:17 | XR ---
EXAMINATION TYPE: XR chest 1V portable DATE OF EXAM: 03/10/2023 COMPARISON: 03/20/2013 HISTORY: Post Operative Cardiac Surgery TECHNIQUE: Single frontal view of the chest is obtained. FINDINGS: There is a postcardiac surgery suggestive of aortic stent. There is left-sided subsegmenta l consolidation underlying COPD. Arthropathy of the shoulders with diffuse osteopenia. Coarsened inte rstitium with no pneumothorax. Hypertrophic changes of the spine. Single cardiac lead overlying the r ight ventricle. IMPRESSION: COPD with the basilar atelectasis favored over pneumonia correlate clinically.
[2023-03-10 11:21] LABS: ALT 19 U/L (4-49); AST 28 U/L (17-59); African American GFR (CKD) >90 (>60 ml/min/1.73 sqM); Albumin 3.1 g/dL (3.5-5.0); Alkaline Phosphatase 53 U/L (38-126); Anion Gap 8 mmol/L; Blood Urea Nitrogen 14 mg/dL (9-20); Calcium 7.9 mg/dL (8.4-10.2); Carbon Dioxide 24 mmol/L (22-30); Chloride 105 mmol/L (98-107); Glucose 103 mg/dL (74-99); Magnesium 1.6 mg/dL (1.6-2.3); Non-African American GFR(CKD) 86 (>60 ml/min/1.73 sqM); Potassium 3.7 mmol/L (3.5-5.1); Sodium 137 mmol/L (137-145); Total Bilirubin 0.4 mg/dL (0.2-1.3); Total Protein 5.4 g/dL (6.3-8.2)
[2023-03-10] MEDS: MAGNESIUM SULFATE-D5W PMX 1 GM in DEXTROSE/WATER 1 100ML.BAG IVPB SCH ×2 (16:09→17:31)
[2023-03-10] MEDS ORDERED: TAMSULOSIN 0.4 MG CAP.ER.24H PO ONE (18:00)
[2023-03-10] MEDS: DOXAZOSIN 4 MG TAB PO SCH (21:26)
[2023-03-10] MEDS: METOPROLOL TARTRATE 50 MG TAB PO SCH (21:26)
[2023-03-10] MEDS: HEPARIN SODIUM,PORCINE/PF 5,000 UNIT/0.5 ML SYRINGE SQ SCH (23:20)
[2023-03-11 00:02] VITALS: TEMP 97.9
[2023-03-11 04:15] LABS: Basophils % (A) 0 %; Eosinophils # (A) 0.1 k/uL (0-0.7); Eosinophils % (A) 1 %; HCT 35.7 % (39.0-53.0); HGB 11.9 gm/dL (13.0-17.5); Lymphocytes # (A) 1.1 k/uL (1.0-4.8); Lymphocytes % (A) 12 %; MCH 31.5 pg (25.0-35.0); MCHC 33.5 g/dL (31.0-37.0); Mean Platelet Volume 8.6; Monocytes # (A) 0.7 k/uL (0-1.0); Monocytes % (A) 8 %; Neutrophils % (A) 79 %; Platelet Count 125 k/uL (150-450); RBC 3.79 m/uL (4.30-5.90); RDW 13.6 % (11.5-15.5)
[2023-03-11 04:39] LABS: Ionized Calcium 4.8 mg/dL (4.5-5.3)
[2023-03-11 04:49] LABS: ALT 20 U/L (4-49); AST 41 U/L (17-59); African American GFR (CKD) >90 (>60 ml/min/1.73 sqM); Albumin 3.3 g/dL (3.5-5.0); Alkaline Phosphatase 54 U/L (38-126); Anion Gap 5 mmol/L; Blood Urea Nitrogen 12 mg/dL (9-20); Calcium 8.3 mg/dL (8.4-10.2); Carbon Dioxide 26 mmol/L (22-30); Chloride 101 mmol/L (98-107); Glucose 127 mg/dL (74-99); Magnesium 1.9 mg/dL (1.6-2.3); Non-African American GFR(CKD) 86 (>60 ml/min/1.73 sqM); Sodium 132 mmol/L (137-145); Total Bilirubin 0.6 mg/dL (0.2-1.3); Total Protein 5.7 g/dL (6.3-8.2)
[2023-03-11] MEDS ORDERED: MAGNESIUM SULFATE-D5W PMX 1 GM in DEXTROSE/WATER 1 100ML.BAG IVPB ONE (05:09)
--- NOTE | 2023-03-11 07:16 | XR ---
EXAMINATION TYPE: XR chest 1V portable DATE OF EXAM: 03/11/2023 COMPARISON: 03/10/2023 HISTORY: Postop TECHNIQUE: Single frontal view of the chest is obtained. FINDINGS: There is postcardiac surgery suggestive of aortic stent. There is left-sided subsegmental consolidation underlying COPD. Arthropathy of the shoulders with diffuse osteopenia. Coarsened inter stitium with no pneumothorax. Hypertrophic changes of the spine. Single cardiac lead overlying the ri ght ventricle. IMPRESSION: 1. COPD with improving left lower lobe atelectasis favored over infiltrate.
[2023-03-11] MEDS ORDERED: PANTOPRAZOLE 40 MG TABLET PO SCH (07:30)
[2023-03-11] MEDS: DOXAZOSIN 4 MG TAB PO SCH (08:41)
[2023-03-11] MEDS: METOPROLOL TARTRATE 50 MG TAB PO SCH (08:41)
[2023-03-11] MEDS: HEPARIN SODIUM,PORCINE/PF 5,000 UNIT/0.5 ML SYRINGE SQ SCH (08:42)
[2023-03-11] MEDS: CHOLECALCIFEROL 25 MCG (1000 IU) TABLET PO SCH (08:42)
[2023-03-11] MEDS: ASCORBIC ACID 500 MG TAB PO SCH (08:43)
[2023-03-11] MEDS ORDERED: ASPIRIN 81 MG PO SCH (09:00)
[2023-03-11] MEDS ORDERED: ATORVASTATIN 40 MG TAB PO SCH (09:00)
[2023-03-11] MEDS ORDERED: MAGNESIUM HYDROXIDE 2,400 MG/10 ML CUP PO PRN (09:00)
[2023-03-11] MEDS ORDERED: CLOPIDOGREL 75 MG TAB PO SCH (09:00)
--- NOTE | 2023-03-11 09:41 | P.PCN ---
Date of Procedure: 03/10/23 Operative Findings: TRANSCATHETER AORITC VALVE REPLACEMENT OPERATIVE REPORT PROCEDURE PERFORMED: 1. Percutaneous Aortic Valve Implantation using a 34 mm Evolut FX valve . 2. Transesophageal echocardiography (performed by anesthesia) 3. Ultrasound guided access and repair of right and left femoral artery access site by Perclose closure device. 4. Placement of temporary pacemaker wire. 5. Aortic root angiography INDICATIONS: 1. An 82 to year-old with a history of severe symptomatic aortic valve stenosis. The patient was experiencing shortness of breath consistent with NYHA class II PERFORMING PHYSICIANS: 1. Dick Sher MD Interventional Cardiology. 3. Eren Woodall MD, MD, Cardiothoracic Surgeon. SEDATION: General anesthesia provided by anesthesia, see separate note APPROACH: Right and left femoral artery via percutaneous approach PROCEDURE DESCRIPTION: The patient was discussed at valve clinic with multidisciplinary approach with cardiothoracic surgeon as well as quality control lab tech and thought better treated with TAVR. Risks, benefits, and alternatives of the procedure had been explained to the patient who understood the risks and agreed to proceed. After consents were obtained, patient was brought to the transcatheter aortic valve implantation room in the cardiac veterinary laboratory technician and general anesthesia was provided by the anesthesiologist (see separate report). Once full body sterile prep was performed, right subclavian venous access was obtained and a temporary pacemaker was screwed in, performed by cardiothoracic surgery. Pacing threshholds were checked and deemed appropriate. Next the left femoral artery waw accessed using a modified Seldinger technique, ultrasound guidance and micropuncture technique. A 6 Icelandic Rabi sheath was placed in the left femoral artery. Next, a 6-Icelandic pigtail catheter was advanced into the aorta and positioned in the aortic root, aortic root angiography was performed to determine optimal deployment angle. The right femoral artery was accessed using modified Seldinger technique, micropuncture technique and under direct ultrasound guidance. Femoral angiogram was done showing access in the common femoral artery and a 6Fr sheath was placed. Next preclose technique was performed using a two Perclose. Next a 0.035 Lunderquist wire was placed in the Aorta via a pigtail catheter. Subsequently an 18-Icelandic Castaner sheath was placed. Next a 6F- AL1 catheter was advanced over a wire to the aortic root. A straight wire was advanced through the catheter and used to cross the severely stenotic valve. The AL1 was then exchanged for a 6Fr pigtail catheter and pressure measurements were obtained. The 0.035 Lunderquist wire was then positioned in the apex. Next a 34 mm Corevalve was advanced. The valve was then positioned across the aortic valve and confirmed with aortic root angiography. [The valve was initially partially deployed however needed repositioning and therefore was recaptured.] The valve was then deployed in proper position using slow deployment and with rapid pacing in conjuncture with aortic root angiography and TONY. The delivery system was withdrawn back into the arch and an aortic root injection in conjunction with TONY demonstrated a satisfactory result. There was revealed para valvular leak. There was no evidence of any other significant abnormalities. The preclose Perclose was then deployed in the right femoral artery and hemostasis was achieved. The rim catheter was then advanced to the level of the iliac bifurcation via the left femoral access. Femoral angiogram was performed that showed no contrast leak. The left femoral angiogram demonstrated an arteriotomy in the common femoral artery and this was repaired using a 6F angioseal device with complete hemostasis. The temporary venous pacemaker was sutured in place. The patient was then transported to the ICU in hemodynamically stable condition, requiring no pressor support. COMPLICATIONS: None RECOMMENDATIONS: The patient will be monitored in the ICU for hemodynamic and electrical stability.
--- NOTE | 2023-03-11 09:48 | P.PN ---
Subjective Progress Note Date: 03/11/23 This is an 82-year-old male patient with a known history of hypertension, hyperlipidemia, chronic chewing tobacco, carotid stenosis status post left carotid stenting. He is also found to have severe aortic stenosis and was brought in today electively for a percutaneous transfemoral aortic valve replacement. He tolerated the procedure well and is seen in consultation in the intensive care unit. He is currently laying flat in bed. Awake and alert in no acute distress. Maintaining good O2 saturations in the 90s on room air. Afebrile. Hemodynamically stable. Groin sites are stable. Blood sugar 111. Lactated Ringer's at 50 MLS per hour. Heparin for DVT prophylaxis. Cefazolin 3 doses. Home medications renewed. Chest x-ray shows no acute pulmonary process. Pacemaker wires in position. The patient is seen today 03/11/2023 in follow-up in the intensive care unit. He is currently resting comfortably in bed. Awake and alert in no acute distress area maintaining good O2 saturations in the mid 90s on room air. Afebrile. Hemodynamically stable. White count 9.0. Hemoglobin 11.9. P latelets 125. Sodium 132. Potassium 4.0. BUN 12. Creatinine 0.74. Glucose 127. He is continued on heparin for DVT prophylaxis. Remains in sinus rhythm. Chest x-ray shows evidence of COPD with left lower lobe atelectasis. Objective - Vital Signs Vital signs: Vital Signs Temp 97.9 F 03/11/23 08:00 Pulse 66 03/11/23 09:00 Resp 34 H 03/11/23 09:00 BP 128/60 03/11/23 09:00 Pulse Ox 95 03/11/23 09:00 FiO2 Intake & Output 03/10/23 03/11/23 03/11/23 18:59 06:59 18:59 Intake Total 650 200 Output Total 1085 400 210 Balance -435 -200 -210 Weight 68.81 kg 68 kg Intake: IV 650 200 Lactated Ringers 1,000 ml 250 @ 50 mls/hr IV .Q20H FRITZ Rx#:[id number] Magnesium Sulfate-D5w Pmx 200 100 1 gm In Dextrose/Water 1 100ml.bag @ 100 mls/hr IVPB Q1H FRITZ Rx#: [id number] ceFAZolin 2 gm In Sodium 50 100 Chloride 0.9% 50 ml @ 100 mls/hr IVPB ONCE ONE Rx# :[id number] Output: Urine 1085 400 210 Other: Voiding Method Urinal Urinal # Voids 0 ABP, PAP, CO, CI - Last Documented Arterial Blood Pressure 129/35 - Exam GENERAL EXAM: Alert, 82-year-old male, comfortable in no apparent distress. HEAD: Normocephalic. EYES: Normal reaction of pupils, equal size. NOSE: Clear with pink turbinates. THROAT: No erythema or exudates. NECK: No masses, no JVD. CHEST: No chest wall deformity. Pacemaker wires in place. LUNGS: Equal air entry with no crackles, wheeze, rhonchi or dullness. CVS: S1 and S2 normal with no audible murmur, regular rhythm. ABDOMEN: No hepatosplenomegaly, normal bowel sounds, no guarding or rigidity. SPINE: No scoliosis or deformity SKIN: No rashes CENTRAL NERVOUS SYSTEM: No focal deficits, tone is normal in all 4 extremities. EXTREMITIES: Groin sites stable. There is no peripheral edema. No clubbing, no cyanosis. Peripheral pulses are intact. - Labs CBC & Chem 7: 03/11/23 03:32 03/11/23 03:32 Labs: Abnormal Lab Results - Last 24 Hours (Table) 03/06/23 03/10/23 03/10/23 Range/Units 10:14 09:45 09:45 RBC 3.60 L (4.30-5.90) m/uL Hgb 11.3 L (13.0-17.5) gm/dL Hct 33.8 L (39.0-53.0) % Plt Count 136 L (150-450) k/uL Sodium (137-145) mmol/L Glucose 103 H (74-99) mg/dL Calcium 7.9 L (8.4-10.2) mg/dL Total Protein 5.4 L (6.3-8.2) g/dL Albumin 3.1 L (3.5-5.0) g/dL Crossmatch See Detail 03/11/23 03/11/23 Range/Units 03:32 03:32 RBC 3.79 L (4.30-5.90) m/uL Hgb 11.9 L (13.0-17.5) gm/dL Hct 35.7 L (39.0-53.0) % Plt Count 125 L (150-450) k/uL Sodium 132 L (137-145) mmol/L Glucose 127 H (74-99) mg/dL Calcium 8.3 L (8.4-10.2) mg/dL Total Protein 5.7 L (6.3-8.2) g/dL Albumin 3.3 L (3.5-5.0) g/dL Crossmatch Assessment and Plan Assessment: Severe aortic stenosis status post percutaneous transfemoral aortic valve replacement. Postoperative day #1 History of carotid stenosis status post left carotid stent placement 02/10/2023 History of coronary artery disease with previous stent placement to LAD in July 2022 History of hypertension Hyperlipidemia Daily tobacco use via chew Plan: The patient was seen and evaluated Chest x-ray, labs and medications reviewed Currently stable and on room air Home once cleared by CT services/cardiology I have personally seen and examined the patient, performed the documentation and the assessment and plan as written. Number of minutes spent on the visit: 10.
--- NOTE | 2023-03-11 10:20 | P.DS ---
Providers Date of admission: 03/10/23 05:52 Expected date of discharge: 03/11/23 Attending physician: Dick Sher Consults: 03/10/23 06:00 Consult to Anesthesia Routine Consulting Provider: Anesthesia,Services Consult Reason/Comments: Cardiac Surgery Pre-Op 03/10/23 08:58 Consult Physician Routine Consulting Provider: Palmer Rose Consult Reason/Comments: Maintenance Person Consult: post cardiac surgery Do you want consulting provider notified?: Yes Consult Physician Routine Consulting Provider: Eren Woodall Consult Reason/Comments: post TAVR Do you want consulting provider notified?: Already Contacted Primary care physician: Mauricio [facility] Course: MEDICAL HISTORY: 1. Calcified aortic valve with severe symptomatic aortic valve stenosis, NYHA class II 2. CAD with PCI to the LAD 3. Carotid artery stenosis, JULIANA 50-69%, LICA .>70% w/ stent placed 02/10/23 4. Hypertension 5. Hyperlipidemia 6. Mild COPD 7. Never smoker, current daily chewing tobacco PROCEDURE: 1. Percutaneous aortic valve implantation using a 34 mm Core Valve Evolute-FX under TONY and fluoroscopy guidance 2. Transesophageal echocardiography performed by anesthesia 3. Ultrasound-guided access and repair of right and left femoral artery access site by Perclose closure device 4. Placement of temporary pacemaker wire 5. Aortic root angiography HISTORY OF PRESENT ILLNESS: This is a 82-year-old gentleman who follows on an outpatient basis with Dr. Dickson for primary care and Dr. Gates for cardiology. He has a known history of severe aortic stenosis and has been symptomatic with increased exertional dyspnea as well as occasional chest pain and dizziness. He had been referred to structural heart clinic for evaluation for transcatheter aortic valve replacement after heart catheterization and transesophageal echocardiogram were completed. Echocardiography demonstrated normal systolic function with EF60-65%, aortic valve area 0.6 cm with a peak/mean gradient 33/19 mmHg. Heart catheterization showed proximal LAD stenosis for which he underwent successful stenting 07/2022. In addition he had critical left ICA stenosis for which he received a carotid stent 01/2023. After workup was completed STS risk score was calculated along with incremental risk and the patient was not felt to be a good candidate for surgical aortic valve replacement, therefore transcatheter aortic valve replacement was recommended. The usual course of TAVR was discussed in detail the patient, risks and benefits were reviewed, shared decision making between cardiology, surgery, and the patient/family took place, and the patient consented to proceed with the procedure. HOSPITAL COURSE: The patient was brought to the hospital on 03/10/2023, was taken to the extended stay area, prepared in the usual fashion, and subsequently taken to the cardiac catheterization laboratory where Dr. Sher and Dr. Woodall completed TAVR procedure under general anesthesia with fluoroscopy and TONY. The valve was deployed under rapid ventricular pacing and proceeded without event. At the end of the procedure there was mean gradient 5.2 mmHg, hemodynamics were felt to be acceptable, and there was mild perivalvular leak. Upon completion of the procedure the patient was extubated and was transferred to the cardiovascular intensive care unit where he was recovered and monitored hemodynamically. His oxygen was titrated down, he was tolerating oral diet, his pain was controlled, follow-up TTE demonstrated normal left ventricular systolic function, no significant aortic insufficiency or perivalvular leak and he was ready to be discharged to home on postoperative day #1. He received written and verbal instruction regarding his medications, activity restrictions, signs and symptoms requiring physician notification, and follow-up appointments. Patient Condition at Discharge: Stable Plan - Discharge Summary Discharge Rx Participant: No New Discharge Prescriptions: New Sennosides-Docusate Sodium [Senokot-S] 2 each PO HS PRN tab PRN Reason: Constipation Acetaminophen Tab [Tylenol] 1,000 mg PO Q6HR PRN tab PRN Reason: Fever And/ Or Mild Pain (1-3) Continue Metoprolol Tartrate [Lopressor] 50 mg PO BID Clopidogrel [Plavix] 75 mg PO DAILY #90 tab Vitamin B Complex 1 each PO DAILY Doxazosin [Cardura] 4 mg PO BID Aspirin 81 mg PO DAILY #90 Ascorbic Acid [Vitamin C] 250 mg PO DAILY [place]-3/Dha/Epa/Fish Oil [Fish Oil 1,000 mg Softgel] 2,000 mg PO DAILY Cholecalciferol [Vitamin D3 (25 Mcg = 1000 Iu)] 50 mcg PO DAILY Discharge Medication List Doxazosin [Cardura] 4 mg PO BID 07/27/22 [History] Metoprolol Tartrate [Lopressor] 50 mg PO BID 07/27/22 [History] Aspirin 81 mg PO DAILY #90 07/30/22 [Rx] Clopidogrel [Plavix] 75 mg PO DAILY #90 tab 07/30/22 [Rx] Ascorbic Acid [Vitamin C] 250 mg PO DAILY 02/08/23 [History] [place]-3/Dha/Epa/Fish Oil [Fish Oil 1,000 mg Softgel] 2,000 mg PO DAILY 02/08/23 [History] Vitamin B Complex 1 each PO DAILY 02/08/23 [History] Cholecalciferol [Vitamin D3 (25 Mcg = 1000 Iu)] 50 mcg PO DAILY 03/03/23 [History] Acetaminophen Tab [Tylenol] 1,000 mg PO Q6HR PRN tab 03/11/23 [Rx] Sennosides-Docusate Sodium [Senokot-S] 2 each PO HS PRN tab 03/11/23 [Rx] Follow up Appointment(s)/Referral(s): Mauricio Dickson DO [Primary Care Provider] - As Needed Guillermo Gates MD [STAFF PHYSICIAN] - 03/18/23 4:30 pm (Your appointment 03/18 is for groin check. You also have and appointment 04/30/23 @ 3:15 for your 30 day post TAVR appointment echo, as well as 1 year post TAVR appointment 02/10/24 @ 1 pm for your echo at [facility]) Clinic,Structural Heart [NON-STAFF] - 04/30/23 2:45 pm (Your appointment 04/30 at the Valve Clinic is for your 30 day post TAVR appointment, you will go to [facility] right after for your echo. You also have a 1 year post TAVR appointment 02/10/24 @ 12:30 at the Valve Clinic followed by a 1 year echo at [facility]) Ambulatory/Diagnostic Orders: Complete Blood Count w/diff [LAB.AMB] Location: None Selected Complete Blood Count w/diff [LAB.AMB] Location: None Selected Comprehensive Metabolic Panel [LAB.AMB] Location: None Selected Comprehensive Metabolic Panel [LAB.AMB] Location: None Selected Activity/Diet/Wound Care/Special Instructions: DISCHARGE INSTRUCTIONS: 1. No driving for 1 week, or until physician gives their ok. 2. No lifting, pushing, or pulling more than 5-10 pounds for 1 week. 3. Hold both groins when you cough or sneeze for the next 2 weeks. Bruising is common, but report increased swelling, pain or fever >101F 4. Shower daily. No pool, hot tub, or bathtub for 1 week 5. No powders, lotions, ointments on incisions. 6. No straining, including for bowel movements. Use stool softner if necessary 7. Stairs are not an issue. Go slowly, using handrail and take 1 step at a time. Ambulate several times daily 8. Continue pain control per as needed orders. 9. Take only the medications listed on your discharge form 10. Eat low salt (limited to 2 grams or 2000 milligrams) daily, avoid adding salt, avoid canned/processed foods 11. Take your weight daily in the morning and record, bring with you to your follow up appointments 12. Keep all follow up appointments. You will need a valve clinic appointment at 30 days and 1 year post procedure for follow up 13. You have been referred to and are expected to begin Cardiac Rehab in approximately 4 weeks. 14. You will need antibiotics prior to any dental work, including cleanings, and any surgeries to prevent Endocarditis (bacterial infection in your heart) For any questions or concerns please call your valve coordinators: Barb or Rolan @ Discharge Disposition: HOME SELF-CARE
--- NOTE | 2023-03-11 10:25 | CA ---
Transthoracic Echo Report Name: Palmer Paul Age: 82 Gender: M : 1940 Exam Date: 03/11/2023 07:44 Exam Location: [place] [facility] Ht (in): 67 Wt (lb): 151 Ordering Physician: Barb Valente Attending/Referring Phys: [id number], Ambrosio Airdox Fitter Andrew Agrawal Procedure CPT: Indications: post TAVR Cardiac Hx: POST TAVR Technical Quality: Fair Contrast 1: Total Dose (mL): Contrast 2: Total Dose (mL): MEASUREMENTS (Male / Female) Normal Values FINDINGS Left Ventricle Left ventricular ejection fraction is estimated at 55-60 %.left ventricular cavity size normal. Normal left ventricular wall motion. Right Ventricle Normal right ventricular size. Right Atrium Normal right atrial size. Left Atrium Normal left atrial size. Mitral Valve Mild mitral annular calcification. Mild mitral regurgitation. Aortic Valve TAVR. No paravalvular aortic regurgitation. Mean gradient 5 mmHg, normal appearance and function Tricuspid Valve Structurally normal tricuspid valve. Mild tricuspid regurgitation. Pulmonic Valve Pulmonic valve not well visualized. No pulmonic regurgitation. Pericardium Normal pericardium. Aorta Normal size aortic root and proximal ascending aorta. CONCLUSIONS 1. Normal left ventricle size and systolic function 2. 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 Mild mitral and tricuspid regurgitation Previewed by: Dr. Pipe Hackett MD (Electronically Signed) Final Date: 11 March 2023 10:24
[2023-03-11 12:49] VITALS: BP 125/59; PULSE 57; RESP 12
== END 2023-03-11 12:58 | disposition home or self-care (01) | DRG 267 ==
LOC: 2ORMAIN 05:52 → 2SICU 08:59
PROVIDERS: ADMIT Internal Medicine Interventional Cardiology; ATTEND Internal Medicine Interventional Cardiology
PROC: B24BZZ4 Ultrasonography of Heart with Aorta, Transesophageal (ICD-10-PCS; 2023-03-10)
PROC: 02RF38Z Replacement of Aortic Valve with Zooplastic Tissue, Percutaneous Approach (ICD-10-PCS; principal; 2023-03-10 08:00)
PROC: 5A1223Z Performance of Cardiac Pacing, Continuous (ICD-10-PCS; 2023-03-10 08:00)
PROC: B3101ZZ Fluoroscopy of Thoracic Aorta using Low Osmolar Contrast (ICD-10-PCS; 2023-03-10 08:00)
DX: I35.0 Nonrheumatic aortic (valve) stenosis (principal); Z00.6 Encounter for examination for normal comparison and control in clinical research program; J98.11 Atelectasis; E78.5 Hyperlipidemia, unspecified; J44.9 Chronic obstructive pulmonary disease, unspecified; I10 Essential (primary) hypertension; K44.9 Diaphragmatic hernia without obstruction or gangrene; I25.10 Atherosclerotic heart disease of native coronary artery without angina pectoris; I65.23 Occlusion and stenosis of bilateral carotid arteries; I73.9 Peripheral vascular disease, unspecified; F17.220 Nicotine dependence, chewing tobacco, uncomplicated; I45.10 Unspecified right bundle-branch block; Z79.82 Long term (current) use of aspirin; Z79.02 Long term (current) use of antithrombotics/antiplatelets; Z79.899 Other long term (current) drug therapy; Z95.5 Presence of coronary angioplasty implant and graft; Z91.030 Bee allergy status; Z71.3 Dietary counseling and surveillance
CPT/HCPCS: 33210; 33361; 71045; 80053; 82330; 83735; 85025; 85610; 85730; 86850; 86900; 86901; 86920; 93306; 93312; 93320; 93325

== ENCOUNTER → 2024-03-22 | Outpatient (CLI) | payer MEDICARE, BC ==
[2024-03-22 19:42] LABS: ALT 18 U/L (10-49); AST 24 U/L (14-35); Chol/HDL Ratio 2.17 Ratio; LDL Cholesterol,Calculated 55.3 mg/dL (0.0-131.0); VLDL Calculation 12.72 mg/dL (5.00-40.00)
== END | disposition home or self-care (01) ==
LOC: LABWHC1 12:58
PROVIDERS: ATTEND Internal Medicine Cardiovascular Disease
DX: E78.2 Mixed hyperlipidemia (principal)
CPT/HCPCS: 36415; 80061; 84450; 84460